=== PATIENT | female | born 1965 | race Caucasian/White ===

== ENCOUNTER → 2022-02-04 | Outpatient (CLI) | payer OTHER, SELFPAY ==
[2022-02-04 12:50] LABS: ALB/GLOB Ratio 1.3 RATIO (0.9-2.4); AST(SGOT) 26 U/L (15-37); Alanine Aminotransfer ALT/SGPT 27 U/L (13-56); Albumin, Serum 4.2 g/dL (3.2-5.0); Alkaline Phosphatase 49 U/L (45-117); Anion Gap 4 (5-15); BUN 12 mg/dL (7-18); BUN/Creat Ratio 19.4 RATIO (10-20); Chloride 107 mmol/L (98-107); Cholesterol 229 mg/dL (200); Creatinine, Serum 0.62 mg/dL (0.55-1.02); EST Glomerular Filtration Rate 105 mL/min (>60); Est Glom Filt Rate - Afr Amer 127 mL/min (>60); Globulin 3.2 g/dL (2.2-4.2); Glucose 98 mg/dL (74-106); High Density Lipoprotein 70 mg/dL; Potassium 4.9 mmol/L (3.5-5.1); Protein, Total 7.4 g/dL (6.4-8.2); Sodium Level 139 mmol/L (136-145); Triglycerides 118 mg/dL; Very Low Density Lipoprotein 24 mg/dL (5-40)
== END | disposition home or self-care (01) ==
LOC: BIMLAB 10:10
PROVIDERS: PCP Internal Medicine; Referring Provider Internal Medicine; Visit Provider Internal Medicine
DX: E78.2 Mixed hyperlipidemia (principal)
CPT/HCPCS: 36415; 80053; 80061

== ENCOUNTER → 2022-03-23 | Outpatient (CLI) | payer OTHER, SELFPAY ==
--- NOTE | 2022-03-23 08:07 | BI_ITS ---
MAMMOGRAPHY - BILATERAL SCREENING REASON FOR EXAM: Female, 56 years old. Routine annual screening examination. PERTINENT HISTORY: Non-contributory. TECHNIQUE: Digital bilateral breast kevin (3D mammographic acquisition) in the CC and MLO projections. 2-D mediolateral oblique (MLO) and craniocaudad (CC) views of both breasts were obtained. CAD: Full Field Digital Mammography with Computer Added Detection was performed. COMPARISON: Comparison is made with prior outside examination dated 11/05/2020. FINDINGS: Breast Composition: The breasts are extremely dense, which lowers the sensitivity of mammography. There are no dominant masses or suspicious calcifications. No other significant abnormalities are identified. There has been no significant change since the prior study. BI/SCRN MAMM (CAD)W/KEVIN BILAT IMPRESSION: Stable bilateral screening mammogram. Yearly follow-up mammogram recommended. (A) ASSESSMENT CATEGORY: BIRADS Category 1: Negative. A letter regarding these results will be sent to the patient by the facility within 30 days. Approximately 10% of breast cancers are not detected by mammography. A normal mammogram should not delay biopsy of a clinically suspicious abnormality. [id number] Electronically Signed: Ja Manzo MD at 8:42 EDT ,
== END | disposition home or self-care (01) ==
LOC: OPBI 08:05
PROVIDERS: PCP Internal Medicine; Visit Provider Internal Medicine
DX: Z12.31 Encounter for screening mammogram for malignant neoplasm of breast (principal)
CPT/HCPCS: 77063; 77067

== ENCOUNTER → 2023-02-09 | Outpatient (CLI) | payer OTHER, SELFPAY ==
[2023-02-09 12:20] LABS: Absolute Lymphocyte Count 2.18 X10^3/uL (0.83-4.51); Absolute Neutrophil Count 2.3 X10^3/uL (2.0-7.7); Basophil# 0.04 X10^3/uL; Basophil% 0.8 % (0-1); Eosinophil# 0.14 X10^3/uL; Eosinophils% 2.7 % (0-5); Hematocrit 39.4 % (37-47); Hemoglobin 12.8 g/dL (12.0-15.0); Lymphocyte # 2.18 X10^3/ul (0.83-4.51); Lymphocyte % 42.7 % (19-41); Mean Corp Hgb Conc 32.5 g/dL (32-36); Mean Corpuscular Hgb 31.4 pg (27.0-32.0); Mean Corpuscular Volume 96.6 fL (81-99); Mean Platelet Vol. 11.1 fl (6.2-12.0); Monocyte# 0.44 X10^3/uL; Monocyte% 8.6 % (0-10); NRBC Flagged by Analyzer 0 % (0-5); Neutrophil # 2.29 X10^3/uL (2.7-7.7); Platelet Count 229 K/mm3 (150-450); RBC Distribution Width CV 12.9 % (11.6-14.6); RBC Distribution Width SD 46.5 fl (35.1-43.9); Red Blood Count 4.08 M/mm3 (4.2-5.4); White Blood Count 5.1 K/mm3 (4.4-11.0)
[2023-02-09 12:55] LABS: ALB/GLOB Ratio 1.1 RATIO (0.9-2.4); AST(SGOT) 22 U/L (15-37); Alanine Aminotransfer ALT/SGPT 20 U/L (13-56); Albumin, Serum 3.9 g/dL (3.2-5.0); Alkaline Phosphatase 50 U/L (45-117); Anion Gap 2 (5-15); BUN 14 mg/dL (7-18); Calcium,Total 9.1 mg/dL (8.5-10.1); Chloride 108 mmol/L (98-107); Cholesterol 208 mg/dL (200); Creatinine, Serum 0.67 mg/dL (0.55-1.02); EST Glomerular Filtration Rate 96 mL/min (>60); Est Glom Filt Rate - Afr Amer 117 mL/min (>60); Globulin 3.6 g/dL (2.2-4.2); Glucose 92 mg/dL (74-106); High Density Lipoprotein 73 mg/dL; Potassium 4.6 mmol/L (3.5-5.1); Protein, Total 7.5 g/dL (6.4-8.2); Sodium Level 140 mmol/L (136-145); Triglycerides 105 mg/dL; Very Low Density Lipoprotein 21 mg/dL (5-40)
== END | disposition home or self-care (01) ==
PROVIDERS: PCP Internal Medicine; Visit Provider Internal Medicine
DX: E78.2 Mixed hyperlipidemia (principal)
CPT/HCPCS: 36415; 80053; 80061; 85025

== ENCOUNTER → 2023-05-13 | Outpatient (CLI) | payer OTHER, SELFPAY ==
--- NOTE | 2023-05-13 07:53 | BI_ITS ---
MAMMOGRAPHY - BILATERAL SCREENING REASON FOR EXAM: Female, 58 years old. Routine annual screening examination. PERTINENT HISTORY: Non-contributory. TECHNIQUE: Digital bilateral breast kevin (3D mammographic acquisition) in the CC and MLO projections. 2-D mediolateral oblique (MLO) and craniocaudad (CC) views of both breasts were obtained. CAD: Full Field Digital Mammography with Computer Added Detection was performed. COMPARISON: Comparison is made with prior study March 23, 2022. FINDINGS: Breast Composition: The breasts are extremely dense, which lowers the sensitivity of mammography. There are no dominant masses or suspicious calcifications. No other significant abnormalities are identified. There has been no significant change since the prior study. BI/SCRN MAMM (CAD)W/KEVIN BILAT IMPRESSION: Stable bilateral screening mammogram. Yearly follow-up mammogram recommended. (A) ASSESSMENT CATEGORY: BIRADS Category 1: Negative. A letter regarding these results will be sent to the patient by the facility within 30 days. Approximately 10% of breast cancers are not detected by mammography. A normal mammogram should not delay biopsy of a clinically suspicious abnormality. [id number] Electronically Signed: Ja Manzo MD at 14:39 EDT ,
== END | disposition home or self-care (01) ==
LOC: OPBI 07:51
PROVIDERS: PCP Internal Medicine; Referring Provider Internal Medicine; Visit Provider Internal Medicine
DX: Z12.31 Encounter for screening mammogram for malignant neoplasm of breast (principal)
CPT/HCPCS: 77063; 77067

== ENCOUNTER → 2024-02-08 | Outpatient (CLI) | payer OTHER, SELFPAY ==
[2024-02-08 12:17] LABS: Absolute Neutrophil Count 2.3 X10^3/uL (2.0-7.7); Basophil# 0.04 X10^3/uL; Eosinophil# 0.06 X10^3/uL; Eosinophils% 1.4 % (0-5); Hematocrit 38.7 % (37-47); Hemoglobin 12.9 g/dL (12.0-15.0); Lymphocyte % 35.6 % (19-41); Mean Corp Hgb Conc 33.3 g/dL (32-36); Mean Corpuscular Hgb 31.5 pg (27.0-32.0); Mean Corpuscular Volume 94.4 fL (81-99); Mean Platelet Vol. 10.6 fl (6.2-12.0); Monocyte# 0.34 X10^3/uL; Monocyte% 8.1 % (0-10); NRBC Flagged by Analyzer 0 % (0-5); Neutrophil # 2.26 X10^3/uL (2.7-7.7); Neutrophil % 53.7 % (47-70); Platelet Count 250 K/mm3 (150-450); RBC Distribution Width SD 45.1 fl (35.1-43.9); White Blood Count 4.2 K/mm3 (4.4-11.0)
[2024-02-08 12:23] LABS: ALB/GLOB Ratio 1.2 RATIO (0.9-2.4); AST(SGOT) 17 U/L (15-37); Alanine Aminotransfer ALT/SGPT 19 U/L (13-56); Albumin, Serum 4.1 g/dL (3.2-5.0); Alkaline Phosphatase 45 U/L (45-117); Anion Gap 5 (5-15); BUN 14 mg/dL (7-18); BUN/Creat Ratio 21.1 RATIO (10-20); Calcium,Total 9.3 mg/dL (8.5-10.1); Chloride 105 mmol/L (98-107); Cholesterol 205 mg/dL (200); Creatinine, Serum 0.66 mg/dL (0.55-1.02); EST Glomerular Filtration Rate 97 mL/min (>60); Est Glom Filt Rate - Afr Amer 117 mL/min (>60); Globulin 3.3 g/dL (2.2-4.2); Glucose 94 mg/dL (74-106); High Density Lipoprotein 70 mg/dL; Potassium 4.7 mmol/L (3.5-5.1); Protein, Total 7.4 g/dL (6.4-8.2); Sodium Level 137 mmol/L (136-145); Triglycerides 109 mg/dL; Very Low Density Lipoprotein 22 mg/dL (5-40)
[2024-02-08 13:23] LABS: Hemoglobin A1c 5.2 % (3.8-5.6)
== END | disposition home or self-care (01) ==
PROVIDERS: PCP Internal Medicine; Referring Provider Nurse Practitioner; Visit Provider Nurse Practitioner
DX: Z00.00 Encounter for general adult medical examination without abnormal findings (principal); E78.2 Mixed hyperlipidemia
CPT/HCPCS: 36415; 80053; 80061; 83036; 85025

== ENCOUNTER 2024-02-22 07:38 | Outpatient (RCR) | payer OTHER, SELFPAY ==
--- NOTE | 2024-02-22 09:10 | HP.PTDCSUM_ITS ---
Discharge Summary D/C summary: It has been my pleasure to treat ISAAC KHAN referred by [facility], with the diagnosis of Hip Pain for a total of 1 visit(s). Discharge Date: 02/22/24 Please see the following information for a summary of their discharge status. Plan Plan: Patient will continue with [facility] due to high deductible and will call if questions D/C Information Discharge Comments: Pt has high deductible and asked to be d/c to [facility] will call with questions or concerns d/c sentence: If there are questions or concerns regarding this patient's physical therapy, pl seth feel free to call me at [phone]. Thank you for the referral of this patient. Sincerely, SAJAN CordobaT
--- NOTE | 2024-02-22 09:10 | HP.PTEVAL_ITS ---
Patient's Visit Information Visit Information Visit Information: ISAAC KHAN is a 58 year old F referred to Physical Therapy by [facility] Tra[facility] with a diagnosis of Hip Pain. Date of Evaluation: 02/22/24 Physical Therapist: Carmen Castellano DPT Visit Plan Frequency: 1x/Week Duration: 1 Week Plan: Patient will continue with [facility] due to high deductible and will call if questions Subjective Subjective: She has always been very active- she has always had stiffness in her right hip- inactivity for long periods of time in the car like driving to [employer]- she would not be able to walk for awhile. About a year ago it got really bad- she was diagnosed with Bursitis- she was given exercises. She thinks they feel like it was worse. She was given Meloxicam- collagen and exercises and she now doesn't really have a lot of pain. She is really here to see what she can and can't do. She was painfree for about a month. So she started working out again and then she started to have a tug on her hip. She hikes, bikes and she is unsure exactly what is going on. So she stopped and so she came to PT to see what we think. The pain is in the buttock and wraps around the outside. The pain radiates down the outside of the leg to the knee- no groin pain. She has not had any x-rays taken of her hips. She does have some achy back issues. She did have issues one time bending forwards picking up her newspapers. She describes the pain as a dull and achy tugging pain. No N/T in the LE. No loss or change in bowel or bladder. Routine for working out: core training- planks- pushups- firehydrants (back and out to the side), bird dogs, Objective Objective: Posture: scoliotic curve- good posture throughout session in sitting Gait: no deviation noted SLS: mild hip drop noted ROM: WNL in all planes of the Lumbar spine- does report discomfort and pulling with bilateral rotation- Hip: WNL bilateral Strength: Core: fair Hip: Right: Flexion: 4/5, Extn: 4/5, Abd: 4/5, IR/ER: 4/5, Add:4+/5, Left: Flexion: 4+/5, Extn: 4+/5, Abd: 4/5, IR/ER: 10/28, Add:4+/5, Knee: 11/27 Ankle: 11/27 Flex: HS: no restriction, Quad: no restriction, Piriformis: Left: no restriction Right: moderate restriction Rehabilitation Potential Physical Therapy Diagnosis: Patient has significant scoliotic curve and has muscular imbalances on either side of the curve leading to increase discomfort with ADL's and recreational activities Rehabilitation Potential: Good Anticipated Interventions Text: Thank you for the opportunity to evaluate your patient. For Medicare and Medicare HMO plans, please review the plan of care and approve it. It will need to be FAXED BACK to us at [phone] for Medicare purposes. For Medicare only, by signing this I certify the plan of care. Please let me know if there are questions or concerns regarding this plan of care. Physician Signature: Date:
== END 2024-02-22 10:30 | disposition home or self-care (01) ==
LOC: PT 07:38
PROVIDERS: PCP Internal Medicine; Referring Provider Nurse Practitioner; Visit Provider Nurse Practitioner
DX: M25.551 Pain in right hip (principal)
CPT/HCPCS: 97162

== ENCOUNTER → 2024-05-15 | Outpatient (CLI) | payer OTHER, SELFPAY ==
--- NOTE | 2024-05-15 08:08 | BI_ITS ---
MAMMOGRAPHY - BILATERAL SCREENING REASON FOR EXAM: Female, 59 years old. Routine annual screening examination. PERTINENT HISTORY: Non-contributory. TECHNIQUE: Digital bilateral breast kevin (3D mammographic acquisition) in the CC and MLO projections. 2-D mediolateral oblique (MLO) and craniocaudad (CC) views of both breasts were obtained. CAD: Full Field Digital Mammography with Computer Added Detection was performed. COMPARISON: Comparison is made with prior study May 13, 2023 and March 23, 2022. FINDINGS: Breast Composition: The breasts are extremely dense, which lowers the sensitivity of mammography. I suspect well-defined nodular densities in the left breast in the background of dense fibroglandular tissue. Correlation with ultrasound is recommended. No other significant abnormalities are identified. BI/SCRN MAMM (CAD)W/KEVIN BILAT IMPRESSION: Findings suggest a well-defined nodular densities in the left breast within the dense fibroglandular tissue. Correlation with ultrasound is recommended. ASSESSMENT CATEGORY: BIRADS Category 0: Incomplete. Need additional imaging evaluation. A letter regarding these results will be sent to the patient by the facility within 30 days. Approximately 10% of breast cancers are not detected by mammography. A normal mammogram should not delay biopsy of a clinically suspicious abnormality. [id number] Electronically Signed: Ja Manzo MD at 11:11 EDT ,
== END | disposition home or self-care (01) ==
LOC: OPBI 08:06
PROVIDERS: PCP Internal Medicine; Referring Provider Nurse Practitioner; Visit Provider Nurse Practitioner
DX: Z12.31 Encounter for screening mammogram for malignant neoplasm of breast (principal)
CPT/HCPCS: 77063; 77067

== ENCOUNTER → 2024-05-17 | Outpatient (CLI) | payer OTHER, SELFPAY ==
--- NOTE | 2024-05-17 10:50 | US_ITS ---
STUDY: ULTRASOUND BREAST - LEFT REASON FOR EXAM: Female, 59 years old. Abnormal screening mammogram. TECHNIQUE: Axial and longitudinal images of the LEFT breast were performed with a high resolution ultrasound transducer. # OF IMAGES: 64 COMPARISON: Comparison is made with prior mammogram dated May 15, 2024. FINDINGS: LEFT Breast: The lateral aspect of the left breast was examined with ultrasound. There is dense fibroglandular tissue. No sonographic abnormality is seen. US/Breast Limited Unilateral IMPRESSION: Dense fibroglandular tissue. No sonographic abnormality is seen. ASSESSMENT CATEGORY: BIRADS Category 2: Benign. A letter regarding these results will be sent to the patient by the facility within 30 days. Electronically Signed: Ja Manzo MD at 14:22 EDT ,
== END | disposition home or self-care (01) ==
PROVIDERS: PCP Internal Medicine; Referring Provider Nurse Practitioner; Visit Provider Nurse Practitioner
DX: R92.8 Other abnormal and inconclusive findings on diagnostic imaging of breast (principal)
CPT/HCPCS: 76642

== ENCOUNTER → 2025-02-15 | Outpatient (CLI) | payer OTHER, SELFPAY ==
--- OUTSIDE RECORDS SUMMARY | 2025-02-15 08:58 | XMS RPT_ITS | CCD ---
Author Organization [facility] Care Team Providers Care Vending Machine Servicer Name Role Phone Dr. Nano Gibbs Attending Provider BERNIE ABERNATHY, NANO Fish Primary Care Physician [phone] MALINI THOMAS Attending Unavailable BERNIE ABERNATHY, NANO Fish Primary Care Unavailable Dr. Nano Gibbs Primary Care Provider Dr. Nano Gibbs Attending Provider Dr. Nano Gibbs Referring Provider Dr. Nano Gibbs MD Primary Care Provider [phone] Dr. Nano Gibbs MD Attending Provider Bernie ABERNATHY, Dr. Morel Referring Provider Mayra Lacey Referring Unavailable Mayra Lacey Attending Unavailable Nano Gibbs Primary Care Unavailable Sridevi Laceyily Referring Unavailable Mayra Lacey Attending Unavailable Nano Gibbs Primary Care Unavailable Sridevi Laceyily Referring Unavailable Mayra Lacey Attending Unavailable Nano Gibbs Primary Care Unavailable Nano Gibbs Primary Care Unavailable Nano Gibbs Referring Unavailable Nano Gibbs Attending Unavailable Allergies Allergy Classification Reported Allergen(s) Allergy Type Date of Onset Reaction(s) Facility (6 sources) Codeine; Translations: [codeine] Drug Allergy 02-04-2022 Nausea [facility] Comment on above: nausea (1 source) Codeine Drug Allergy 02-08-2025 [facility] Repository Medications Current Medications Medication Drug Class(es) Dates Sig (Normalized) Sig (Original) acetaminophen 500 mg / diphenhydrAMINE hydrochloride 25 mg oral tablet (1 source) Histamine-1 Receptor Antagonist Start: 06-12-2022 take 1 tablet by mouth once daily at bedtime Tylenol PM Extra Strength oral tablet Dose = 1 tab(s), Oral, qHS, 0 Refill(s) Start Date: 06/12/22 Status: Ordered Biotin (1 source) Start: 10-30-2020 biotin Oral, qDay, 0 Refill(s) Start Date: 10/30/20 Status: Ordered Collagen (1 source) Start: 06-12-2022 Collagen Powder Collagen Powder, 0 Refill(s), 57.2 Start Date: 06/12/22 Status: Ordered Collagen (Bovine) 100 % powder in packet (1 source) Start: 02-08-2024 Collagen (Bovine) 100 % powder in packet Active [facility] February 08, 2024 12:00am ibuprofen 200 mg oral tablet (1 source) Nonsteroidal Anti-inflammatory Drug Start: 03-25-2015 ibuprofen 200 mg oral tablet Dose : 400 mg = 2 tab(s), Oral, q4h, PRN for pain, 0 Refill(s) Start Date: 03/25/15 Status: Ordered meloxicam 7.5 mg oral tablet (7 sources) Nonsteroidal Anti-inflammatory Drug Start: 02-04-2023 End: 12-21-2024 take 1 tablet by mouth once daily Meloxicam 7.5 mg tablet Active 7.5 mg PO DAILY 90 0 December 21, 2024 12:03pm Multivitamin preparation (5 sources) Start: 02-04-2022 take 1 tablet by mouth once daily Multivitamin Active 1 TABLET PO DAILY February 04, 2022 12:00am Start: 10-30-2020 take 1 tablet by barbara th once daily Multivitamin Dose = 1 tab(s), Oral, Daily, 0 Refill(s) Start Date: 10/30/20 Status: Ordered Completed/Discontinued Medications Medication Drug Class(es) Dates Sig (Normalized) Sig (Original) Multivitamin tablet (1 source) Start: 02-04-2022 End: 02-08-2024 Multivitamin tablet Discontinued 1 {tbl} PO DAILY February 04, 2022 12:00am February 08, 2024 7:51am naproxen sodium 220 mg oral capsule (5 sources) Nonsteroidal Anti-inflammatory Drug Start: 02-04-2022 End: 02-08-2024 take 1 capsule by mouth once daily as needed for pain Naproxen Sodium (Aleve) 220 mg capsule Discontinued 220 mg PO DAILY as needed for pain February 04, 2022 12:00am February 08, 2024 7:49am Problems Active Problems Problem Classification Problem Date Documented Da te Episodic/Chronic Administrative/social admission (2 sources) Persons encountering health services in other specified circumstances; Translations: [Other reasons for seeking consultation] Episodic Disorders of lipid metabolism (10 sources) Mixed hyperlipidemia; Translations: [Mixed hyperlipidemia] Chronic Other non-traumatic joint disorders (6 sources) Hip pain; Translations: [Pain in right hip] 02-04-2022 Episodic Residual codes; unclassified (2 sources) Family history of malignant neoplasm of digestive organs; Translations: [Family history of malignant neoplasm of gastrointestinal tract] Episodic Past or Other Problems Problem Classification Problem Date Documented Da te Episodic/Chronic Other non-traumatic joint disorders (5 sources) Pain in right hip; Translations: [Pain in joint, pelvic region and thigh] Onset: 02-22-2024 Episodic Other screening for suspected conditions (not mental disorders or infectious disease) (7 sources) Encounter for screening for malignant neoplasm of colon; Translations: [Special screening for malignant neoplasms of colon] Onset: 06-08-2024 Episodic Results Test Name Value Interpretation Reference Range Facility Internal Medicine Office Vis brandon 02-07-2025 Internal Medicine Office Visit [facility] [address] [place] [address] OFFICE VISIT Date of Service: 02/08/25 MR#: [id number] Acct: [id number] Name: OLGA LIDIA KHAN Rep #: [id number] : 1965 Provider: Dr. Nano weiss MD Age/Sex: 59/F Location: [facility] Status: Signed Intake Vital Signs 02/08/24 07:52 02/08/25 07:59 02/08/25 09:53 Height 5 ft 3 in 5 ft 3 in Weight: 125 lb 2 oz BMI 22.1 BP 142/68 H 118/62 Blood Pressure Location Lt brachial Position Sitting Respiration 16 Pulse 64 Pulse Source Monitor Temp 97.4 F L Temp Source Temporal Pulse Oximetry (%) 98 Oxygen Delivery Method room air Intake Visit Reasons: YEARLY Chief Complaint: 1 YR FU Ui Software Developer Required: No Accompanied by: Self Is patient in pain?: No Allergies codeine Adverse Reaction (Mild, Verified 02/08/25 07:58) Nausea Medications ???Medication ???Instructions ???Recorded ???Confirmed ???Type collagen (bovine) 100 % topical ea topical 02/08/24 02/08/25 Histo ry powder in packet meloxicam 7.5 mg tablet 7.5 mg PO DAILY #90 tabs 02/08/25 02/08/25 Rx Nurse's Note: yearly [facility] Surgical History History of D C Family History Mother COPD (chronic obstructive pulmonary disease) Thyroid disorder Anxiety Arthritis Depression Colon cancer Rheumatoid arthritis Father Blood clot in vein Myocardial infarction Diabetes Heart disease Hypertension CVA (cerebral vascular accident) Social History household members: spouse current occupational status: retired current occupation: youth teacher Smoking Status: Never smoker Electronic Cigarette Use: not used alcohol intake: current alcohol intake frequency: holidays/special occasions only substance use type: does not use do you feel safe at home: Yes Questionnaire H-9 BMS Over the last 2 weeks, how often have you been bothered by any of the following problems? 1. Little interest or pleasure in doing things: not at all 2. Feeling down, depressed, or hopeless: not at all 3. Trouble falling or staying asleep, or sleeping too much: not at all 4. Feeling tired or having little energy: not at all 5. Poor appetite or overeating: not at all 6. Feeling bad about yourself - or that you are a failure or have let yourself and your family down: not at all 7. Trouble concentrating on things, such as reading the newspaper or watching television: not at all 8. Moving or speaking so slowly that other people could have noticed? - Or the opposite - being so fidgety or restless that you have been moving around a lot more than usual: not at all 9. Thoughts that you would be better off or of hurting yourself in some way: not at all Total score: 0 If you checked off any problems, how difficult have these problems made it for you to do your work, take care of things at home, or get along with other people?: not difficult at all Source: Developed by Drs. Cody Hong, Gail Greene, Nam Jimenez and colleagues, with an educational brayan from [employer]. HPI HPI Chief Complaint: 1 YR FU Details: OLGA LIDIA KHAN, is a 59 F who presents to the office today for an annual visit. She is due for some routine blood work and is up to date on her screening. She sees CARLI Agarwal. She never got her shingrix, but still plans on doing so. She isn't due for any other immunizations. She doesn't smoke and doesn't take any prescription medications. She reports her hip pain has been doing better. She reports she did do physical therapy and has since been doing more stretches and exercises. She tries to do pilates which has been helpful. Wh ile she still has some symptoms, it is doing better than it was. She will take meloxicam only as needed, which does help when her pain is pain. She has no other questions or concerns. Allergies: codeine Medications reviewed: Yes Olga Lidia likes to exercises by walking, hiking, biking and doing pilates as above. They watch their diet for sodium, low fat, and low cholesterol most of the time. List of current specialists seen: CARLI End of life planning discussed including patient's advanced directive wishes: Discussed. Patient does have one in place. I am willing to follow Olga Lidia's advanced directives PHQ-2/Depression screen They in the past two weeks denies having felt down, depressed, hopeless or with little interest or pleasure in doing things. Functional Ability/Safety Screen 1. Was the patient's time up and go test unsteady or longer than 30 seconds? No 2. Does the patient need help with the phone, transportation, shopping, prepared meals, housework, laundry, medications or ma (more content not included)... Normal [facility] Breast Limited Unilateralon 05-17-2024 Breast Limited Unilateral [facility] [address] [place] [address] Breast Limited Unilateral MR#: [id number] Acct: [id number] Name: OLGA LIDIA KHAN Rep #: [id number] : 1965 F 59 From: Ja fraga MD PCP: Dr. Nano Gibbs MD Status: REG CLI Study: Breast Limited Unilateral Date of Exam: Exam# [id number] Ordering Dr: Mayra Lacey -[id number] STUDY: ULTRASOUND BREAST - LEFT REASON FOR EXAM: Female, 59 years old. Abnormal screening mammogram. TECHNIQUE: Axial and longitudinal images of the LEFT breast were performed with a high resolution ultrasound transducer. # OF IMAGES: 64 COMPARISON: Comparison is made with prior mammogram dated May 15, 2024. FINDINGS: LEFT Breast: The lateral aspect of the left breast was examined with ultrasound. There is dense fibroglandular tissue. No sonographic abnormality is seen. US/Breast Limited Unilateral IMPRESSION: Dense fibroglandular tissue. No sonographic abnormality is seen. ASSESSMENT CATEGORY: BIRADS Category 2: Benign. A letter regarding these results will be sent to the patient by the facility within 30 days. Electronically Signed: Ja Manzo MD at 14:22 EDT , CC: EMMA Lacey; Dr. Nano Gibbs MD B2B Sales Professional: Signed Normal [facility] SCRN MAMM (CAD)W/KEVIN BILATo n 05-15-2024 SCRN MAMM (CAD)W/KEVIN BILAT [facility] Imaging Services [address] [place], [place] [address] SCRN MAMM (CAD)W/KEVIN BILAT MR#: [id number] Acct: [id number] Name: OLGA LIDIA KHAN Rep #: [id number] : 1965 F 59 From: Ja fraga MD PCP: Dr. Nano Gibbs MD Status: REG [facility] Study: SCRN MAMM (CAD)W/KEVIN BILAT Date of Exam: 04/26 08/18 Exam# [id number] Ordering Dr: Mayra Lacey OTHER SPORTS OFFICIAL-C -[id number] MAMMOGRAPHY - BILATERAL SCREENING REASON FOR EXAM: Female, 59 years old. Routine annual screening examination. PERTINENT HISTORY: Non-contributory. TECHNIQUE: Digital bilateral breast kevin (3D mammographic acquisition) in the CC and MLO projections. 2-D mediolateral oblique (MLO) and craniocaudad (CC) views of both breasts were obtained. CAD: Full Field Digital Mammography with Computer Added Detection was performed. COMPARISON: Comparison is made with prior study May 13, 2023 and March 23, 2022. FINDINGS: Breast Composition: The breasts are extremely dense, which lowers the sensitivity of mammography. I suspect well-defined nodular densities in the left breast in the background of dense fibroglandular tissue. Correlation with ultrasound is recommended. No other significant abnormalities are identified. BI/SCRN MAMM (CAD)W/KEVIN BILAT IMPRESSION: Findings suggest a well-defined nodular densities in the left breast within the dense fibroglandular tissue. Correlation with ultrasound is recommended. ASSESSMENT CATEGORY: BIRADS Category 0: Incomplete. Need additional imaging evaluation. A letter regarding these results will be sent to the patient by the facility within 30 days. Approximately 10% of breast cancers are not detected by mammography. A normal mammogram should not delay biopsy of a clinically suspicious abnormality. [id number] Electronically Signed: Ja Manzo MD at 11:11 EDT , CC: EMMA Lacey; Dr. Nano Gibbs MD B2B Sales Professional: Signed Normal [facility] Inital Evaluation (1) - PTon 02-22-2024 Inital Evaluation (1) - PT [facility] Physical Therapy [facility] [address] [place] [address] / REHABILITATION SERVICES INITIAL EVALUATION MR#: [id number] Acct: [id number] Name: OLGA LIDIA KHAN Rep #: [id number] : 1965 58 From: Carmen Castellano DPT Referring Dr.: EMMA Traore Status: REG R Insurance: [employer] [facility] Patient's Visit Information Visit Information Visit Information: OLGA LIDIA KHAN is a 58 year old F referred to Physical Therapy by EMMA Traore with a diagnosis of Hip Pain. Date of Evaluation: 02/22/24 Physical Therapist: Carmen Castellano DPT Visit Plan Frequency: 1x/Week Duration: 1 Week Plan: Patient will continue with HEP due to high deductible and will call if questions Subjective Subjective: She has always been very active- she has always had stiffness in her right hip- inactivity for long periods of time in the car like driving to [place]- she would not be able to walk for awhile. About a year ago it got really bad- she was diagnosed with Bursitis- she was given exercises. She thinks they feel like it was worse. She was given Meloxicam- collagen and exercises and she now doesn't really have a lot of pain. She is really here to see what she can and can't do. She was painfree for about a month. So she started working out again and then she started to have a tug on her hip. She hikes, bikes and she is unsure exactly what is going on. So she stopped and so she came to PT to see what we think. The pain is in the buttock and wraps around the outside. The pain radiates down the outside of the leg to the knee- no groin pain. She has not had any x- rays taken of her hips. She does have some achy back issues. She did have issues one time bending forwards picking up her newspapers. She describes the pain as a dull and achy tugging pain. No N/T in the LE. No loss or change in bowel or bladder. Routine for working out: core training- planks- pushups- firehydrants (back and out to the side), bird dogs, Objective Objective: Posture: scoliotic curve- good posture throughout session in sitting Gait: no deviation noted SLS: mild hip drop noted ROM: WNL in all planes of the Lumbar spine- does report discomfort and pulling with bilateral rotation- Hip: WNL bilateral Strength: Core: fair Hip: Right: Flexion: 4/5, Extn: 4/5, Abd: 4/5, IR/ER: 4/5, Add:4+/5, Left: Flexion: 4+/5, Extn: 4+/5, Abd: 4/5, IR/ER: 4/5, Add:4+/5, Knee: 5/5 Ankle: 5/5 Flex: HS: no restriction, Quad: no restriction, Piriformis: Left: no restriction Right: moderate restriction Rehabilitation Potential Physical Therapy Diagnosis: Patient has significant scoliotic curve and has muscular imbalances on either side of the curve leading to increase discomfort with ADL's and recreational activities Rehabilitation Potential: Good Anticipated Interventions Text: Thank you for the opportunity to evaluate your patient. For Medicare and Medicare HMO plans, please review the plan of care and approve it. It will need to be FAXED BACK to us at [phone] for Medicare purposes. For Medicare only, by signing this I certify the plan of care. Please let me know if there are questions or concerns regarding this plan of care. Physician Signature: __Date: 02/22/24 0910 CC: EMMA Lacey; Dr. Nano Gibbs MD ELR Signed Normal [facility] PT D/C Summary (1)on 024 PT D/C Summary (1) [facility] Physical Therapy [facility] [facility] [address] [place] [address] / REHABILITATION SERVICES DISCHARGE SUMMARY MR#: [id number] Acct: [id number] Name: OLGA LIDIA KHAN Rep #: [id number] : 1965 58 From: Carmen Castellano DPT Referring Dr.: EMMA Lacey Status: REG RCR Insurance: [employer] [facility] [employer] Discharge Summary D/C summary: It has been my pleasure to treat OLGA LIDIA KHAN referred by EMMA Traore, with the diagnosis of Hip Pain for a total of 1 visit(s). Discharge Date: 02/22/24 Please see the following information for a summary of their discharge status. Plan Plan: Patient will continue with HEP due to high deductible and will call if questions D/C Information Discharge Comments: Pt has high deductible and asked to be d/c to HEP will call with questions or concerns d/c sentence: If there are questions or concerns regarding this patient's physical therapy, please feel free to call me at [phone]. Thank you for the referral of this patient. Sincerely, Carmen Castellano DPT 02/22/24 0910 CC: EMMA Lacey; Dr. Nano Gibbs MD ELR Signed Normal [facility] Absolute lymphocyte countOrd ered By: Nano Gibbs on 02-09-2023 Lymphocytes Auto (Unsp spec) [#/Vol] 2.18 10*3/uL 0.83-4.51 [facility] Basophil percentageOrdered B y: Nano Gibbs on 02-09-2023 Basophils/100 WBC (Bld) 0.8 % 0-1 [facility] Bilirubin [Mass/Vol] 0.60 mg/dL 0.20-1.00 [facility] Comment on above: For patients on eltr ombopag therapy, use of Dimension [place] TBIL is not recommended. Chloride [Moles/Vol] 108 mmol/L 98-107 [facility] Cholesterol [Mass/Vol] 208 mg/dL <[address] [facility] Comment on above: <200 mg/dL Desirable 200-240 mg/dL Borderline >240 mg/dL High Risk Eosinophils/100 WBC (Bld) 2.7 % 0-5 [facility] Glucose [Mass/Vol] 92 mg/dL 74-106 [facility] Neutrophils (Bld) [#/Vol] 2.3 10*3/uL 2.0-7.7 [facility] Neutrophils/100 WBC (Bld) 45.0 % 47-70 [facility] Potassium [Moles/Vol] 4.6 mmol/L 3.5-5.1 [facility] Protein [Mass/Vol] 7.5 g/dL 6.4-8.2 [facility] Sodium [Moles/Vol] 140 mmol/L 136-145 [facility] Triglyceride [Mass/Vol] 105 mg/dL <199 [facility] Comment on above: The drugs N-Acetylcy steine and Metamizole may falsely depress this assay.Serum Triglycerides Reference Interval Normal <150 mg/dL Borderline high 150 - 199 mg/dL High 200 - 499 mg/dL Very High > or = 500 mg/dL WBC (Bld) [#/Vol] 5.1 10*3/uL 4.4-11.0 [facility] Blood erythrocytes count (nu mber/volume)Ordered By: Nano Gibbs on 02-09-2023 RBC (Bld) [#/Vol] 4.08 10*6/uL 4.2-5.4 [facility] Blood hemoglobin measurement (mass/volume)Ordered By: Nano Gibbs on 02-09-2023 Hemoglobin (Bld) [Mass/Vol] 12.8 g/dL 12.0-15.0 [facility] Blood lymphocytes/100 leukoc ytesOrdered By: Nano Gibbs on 02-09-2023 Lymphocytes/100 WBC (Bld) 42.7 % 19-41 [facility] Blood monocytes/100 leukocyt esOrdered By: Nano Gibbs on 02-09-2023 Monocytes/100 WBC (Bld) 8.6 % 0-10 [facility] Blood platelet mean volumeOr dered By: Nano Gibbs on 02-09-2023 Platelet mean volume (Bld) [Entitic vol] 11.1 fL 6.2-12.0 [facility] Determination of erythrocyte mean corpuscular volume (MCV)Ordered By: Nano Gibbs on 02-09-2023 MCV (RBC) [Entitic vol] 96.6 fL 81-99 [facility] Hematocrit Auto (Bld) [Volum e fraction]Ordered By: Nano Gibbs on 02-09-2023 Hematocrit (Bld) [Volume fraction] 39.4 % 37-47 [facility] Laboratory - Chemistry and C hemistry - challengeOrdered By: Nano Gibbs on 02-09-2023 ALP [Catalytic activity/Vol] 50 U/L 45-117 [facility] ALT [Catalytic activity/Vol] 20 U/L 13-56 [facility] CO2 [Moles/Vol] 30.0 mmol/L 21.0-32.0 [facility] Globulin (S) [Mass/Vol] 3.6 g/dL 2.2-4.2 [facility] Urea nitrogen/Creatinine [Mass ratio] 21.0 mg/mg 10-20 [facility] Laboratory - Hematology and Cell countsOrdered By: Nano Gibbs on 02-09-2023 Erythrocyte distribution width (RBC) [Entitic vol] 46.5 fL 35.1-43.9 [facility] Erythrocyte distribution width (RBC) [Ratio] 12.9 % 11.6-14.6 [facility] Immature granulocytes/100 WBC (Bld) 0.200 % 0.0-0.9 [facility] Comment on above: IG% - Immature Granu locytes (promyelocytes, myelocytes and metamyelocytes) > 1% indicates that a LEFT SHIFT is Present. MCH (RBC) [Entitic mass] 31.4 pg 27.0-32.0 [facility] Nucleated RBC/100 WBC (Bld) [Ratio] 0 % 0-5 [facility] MCHC Auto (RBC) [Mass/Vol]Or dered By: Nano Gibbs on 02-09-2023 MCHC (RBC) [Mass/Vol] 32.5 g/dL 32-36 [facility] No Panel InformationOrdered By: Nano Gibbs on 02-09-2023 Estimated GFR (MDRD) Amer 117 mL/min >60 [facility] Comment on above: GFR Calc Estimated GFR (MDRD) Non-Af Amer 96 mL/min >60 [facility] Comment on above: Non- GFR Calc Platelets bldOrdered By: Vince Gibbs on 02-09-2023 Platelets (Bld) [#/Vol] 229 10*3/uL 150-450 [facility] Serum or plasma albumin franko urement (mass/volume)Ordered By: Nano Gibbs on 02-09-2023 Albumin [Mass/Vol] 3.9 g/dL 3.2-5.0 [facility] Serum or plasma albumin/glob ulin mass ratioOrdered By: Nano Gibbs on 02-09-2023 Albumin/Globulin [Mass ratio] 1.1 {ratio} 0.9-2.4 [facility] Serum or plasma calcium franko urement (mass/volume)Ordered By: Nano Gibbs on 02-09-2023 Calcium [Mass/Vol] 9.1 mg/dL 8.5-10.1 [facility] Serum or plasma cholesterol in HDL measurement (mass/volume)Ordered By: Nano Gibbs on 02-09-2023 Cholesterol in HDL [Mass/Vol] 73 mg/dL >40 [facility] Comment on above: The drugs N-Acetylcy steine and Metamizole may falsely depress this assay. Reference Range HDL <40 mg/dL Low HDL Cholesterol HDL >or= 60 mg/dL High HDL Cholesterol Serum or plasma cholesterol in VLDL measurement (mass/volume)Ordered By: Nano Gibbs on 02-09-2023 Cholesterol in VLDL [Mass/Vol] 21 mg/dL 5-40 [facility] Serum or plasma creatinine m easurement (mass/volume)Ordered By: Nano Gibbs on 02-09-2023 Creatinine [Mass/Vol] 0.67 mg/dL 0.55-1.02 [facility] Comment on above: The validity of the calculated GFR & GFRAA in patients over 70 years has not been determined. Clinical correlation is essential. Serum or plasma low density lipoprotein (LDL) cholesterol measurement (mass/volume)Ordered By: Nano Gibbs on 02-09-2023 Cholesterol in LDL [Mass/Vol] 114 mg/dL 0-130 [facility] Serum or plasma urea nitroge n measurement (mass/volume)Ordered By: aNno Gibbs on 02-09-2023 Urea nitrogen [Mass/Vol] 14 mg/dL 7-18 [facility] Thin prep Papanicolaou smear with manual screeningOrdered By: Nanofrida Gibbs on 02-09-2023 Thin prep Papanicolaou smear with manual screening 22 U/L 15-37 [facility] Thin prep Papanicolaou smear with manual screening 2 5-15 [facility] Basophil percentageon 2021 Bilirubin [Mass/Vol] 0.40 mg/dL 0.20-1.00 [facility] Work Phone: Comment on above: For patients on eltr ombopag therapy, use of Dimension [place] TBIL is not recommended. Chloride [Moles/Vol] 107 mmol/L 98-107 [facility] Work Phone: Cholesterol [Mass/Vol] 229 mg/dL <200 [facility] Work Phone: Comment on above: <200 mg/dL Desirable 200-240 mg/dL Borderline >240 mg/dL High Risk Glucose [Mass/Vol] 98 mg/dL 74-106 [facility] Work Phone: Potassium [Moles/Vol] 4.9 mmol/L 3.5-5.1 [facility] Work Phone: Protein [Mass/Vol] 7.4 g/dL 6.4-8.2 [facility] Work Phone: Sodium [Moles/Vol] 139 mmol/L 136-145 [facility] Work Phone: Triglyceride [Mass/Vol] 118 mg/dL <199 [facility] Work Phone: Comment on above: [facility] drugs N-Acetylcy steine and Metamizole may falsely depress this assay.Serum Triglycerides Reference Interval Normal <150 mg/dL Borderline high 150 - 199 mg/dL High 200 - 499 mg/dL Very High > or = 500 mg/dL Laboratory - Chemistry and C hemistry - challengeon 02-04-2022 ALP [Catalytic activity/Vol] 49 U/L 45-117 [facility] Work Phone: ALT [Catalytic activity/Vol] 27 U/L 13-56 [facility] Work Phone: CO2 [Moles/Vol] 28.0 mmol/L 21.0-32.0 [facility] Work Phone: Globulin (S) [Mass/Vol] 3.2 g/dL 2.2-4.2 [facility] Work Phone: Urea nitrogen/Creatinine [Mass ratio] 19.4 mg/mg 10-20 [facility] Work Phone: No Panel Informationon 02-04 Estimated GFR (MDRD) Amer 127 mL/min >60 [facility] Work Phone: Comment on above: GFR Calc Estimated GFR (MDRD) Non-Af Amer 105 mL/min >60 [facility] Work Phone: Comment on above: Non- GFR Calc Serum or plasma albumin franko urement (mass/volume)on 02-04-2022 Albumin [Mass/Vol] 4.2 g/dL 3.2-5.0 [facility] Work Phone: Serum or plasma albumin/glob ulin mass ratioon 02-04-2022 Albumin/Globulin [Mass ratio] 1.3 {ratio} 0.9-2.4 [facility] Work Phone: Serum or plasma calcium franko urement (mass/volume)on 02-04-2022 Calcium [Mass/Vol] 9.0 mg/dL 8.5-10.1 [facility] Work Phone: Serum or plasma cholesterol in HDL measurement (mass/volume)on 02-04-2022 Cholesterol in HDL [Mass/Vol] 70 mg/dL >40 [facility] Work Phone: Comment on above: The drugs N-Acetylcy steine and Metamizole may falsely depress this assay. Reference Range HDL <40 mg/dL Low HDL Cholesterol HDL >or= 60 mg/dL High HDL Cholesterol Serum or plasma cholesterol in VLDL measurement (mass/volume)on 02-04-2022 Cholesterol in VLDL [Mass/Vol] 24 mg/dL 5-40 [facility] Work Phone: Serum or plasma creatinine m easurement (mass/volume)on 02-04-2022 Creatinine [Mass/Vol] 0.62 mg/dL 0.55-1.02 [facility] Work Phone: Comment on above: The validity of the calculated GFR & GFRAA in patients over 70 years has not been determined. Clinical correlation is essential. Serum or plasma low density lipoprotein (LDL) cholesterol measurement (mass/volume)on 02-04-2022 Cholesterol in LDL [Mass/Vol] 135 mg/dL 0-130 [facility] Work Phone: Serum or plasma urea nitroge n measurement (mass/volume)on 02-04-2022 Urea nitrogen [Mass/Vol] 12 mg/dL 7-18 [facility] Work Phone: Thin prep Papanicolaou smear with manual screeningon 02-04-2022 Thin prep Papanicolaou smear with manual screening 26 U/L 15-37 [facility] Work Phone: Thin prep Papanicolaou smear with manual screening 4 5-15 [facility] Work Phone: Vital Signs Date Time Vital Sign Value Performing Clinician Facility 02-08-2025 07:59-0400 Body height 160.[address] Nano Gibbs MD Work Phone: [facility] 02-08-2025 07:59-0400 Body mass index (BMI) [Ratio] 22.1 kg/m2 Dr. Nano Gibbs MD Work Phone: [facility] 02-08-2025 07:59-0400 Body temperature 97.4 [degF] Dr. Nano Gibbs MD Work Phone: [facility] 02-08-2025 07:59-0400 Body weight 56.[address] Nano Gibbs MD Work Phone: [facility] 02-08-2025 07:59-0400 Diastolic blood pressure 68 mm[Hg] Dr. Nano Gibbs MD Work Phone: [facility] 02-08-2025 07:59-0400 Heart rate 64 /min Dr. Nano Gibbs MD Work Phone: [facility] 02-08-2025 07:59-0400 Respiratory rate 16 /min Dr. Nano Gibbs MD Work Phone: [facility] 02-08-2025 07:59-0400 SaO2% (BldA) [Mass fraction] 98 % Dr. Nano Gibbs MD Work Phone: [facility] 02-08-2025 07:59-0400 Systolic blood pressure 142 mm[Hg] Dr. Nano Gibbs MD Work Phone: [facility] 02-04-2023 09:01-0400 Body height 160.[address] Nano Gibbs Work Phone: [facility] 02-04-2023 09:01-0400 Body mass index (BMI) [Ratio] 22.3 kg/m2 Dr. Nano Gibbs Work Phone: [facility] 02-04-2023 09:01-0400 Body temperature 98.1 [degF] Dr. Nano Gibbs Work Phone: [facility] 02-04-2023 09:01-0400 Body weight 57.[address] Nano Gibbs Work Phone: [facility] 02-04-2023 09:01-0400 Diastolic blood pressure 82 mm[Hg] Dr. Nano Gibbs Work Phone: [facility] 02-04-2023 09:01-0400 Heart rate 69 /min Dr. Nano Gibbs Work Phone: [facility] 02-04-2023 09:01-0400 Respiratory rate 16 /min Dr. Nano Gibbs Work Phone: [facility] 02-04-2023 09:01-0400 SaO2% (BldA) [Mass fraction] 99 % Dr. Nano Gibbs Work Phone: [facility] 02-04-2023 09:01-0400 Systolic blood pressure 118 mm[Hg] Dr. Nano Gibbs Work Phone: [facility] 09-21-2022 10:05-0500 Diastolic Blood Pressure Non-Invasive [address] MALINI THOMAS MD [facility] [place] 09-21-2022 10:05-0500 Heart rate 78 /min DR MALINI THOMAS MD [facility] [place] 09-21-2022 10:05-0500 Respiratory rate 14 /min DR MALINI THOMAS MD [facility] [place] 09-21-2022 10:05-0500 Systolic Blood Pressure Non-Invasive [address] MALINI THOMAS MD [facility] [place] 09-21-2022 10:00-0500 Diastolic Blood Pressure Non-Invasive [address] MALINI THOMAS MD [facility] [place] 09-21-2022 10:00-0500 Heart rate 70 /min DR MALINI THOMAS MD [facility] [place] 09-21-2022 10:00-0500 Systolic Blood Pressure Non-Invasive [address] MALINI THOMAS MD [facility] [place] 09-21-2022 09:55-0500 Diastolic Blood Pressure Non-Invasive [address] MALINI THOMAS MD [facility] [place] 09-21-2022 09:55-0500 Heart rate 77 /min DR MALINI THOMAS MD [facility] [place] 09-21-2022 09:55-0500 Respiratory rate 19 /min DR MALINI THOMAS MD [facility] [place] 09-21-2022 09:55-0500 Systolic Blood Pressure Non-Invasive [address] MALINI THOMAS MD [facility] [place] 09-21-2022 09:45-0500 Respiratory Rate - Anes 27 br/min DR MALINI THOMAS MD [facility] [place] 09-21-2022 09:40-0500 Respiratory Rate - Anes 13 br/min DR MALINI THOMAS MD [facility] [place] 09-21-2022 09:35-0500 Respiratory Rate - Anes 17 br/min DR MALINI THOMAS MD [facility] [place] 09-21-2022 07:45-0500 Body height [address] MALINI THOMAS MD [facility] [place] 09-21-2022 07:45-0500 Body weight 56.[address] MALINI THOMAS MD [facility] [place] 09-21-2022 07:45-0500 Body weight 21.53 kg/m2 DR MALINI THOMAS MD [facility] [place] 09-21-2022 07:41-0500 Body temperature 96.98 [degF] DR MALINI THOMAS MD [facility] [place] 09-21-2022 07:41-0500 Heart rate 76 /min DR MALINI THOMAS MD [facility] [place] 02-04-2022 09:20-0400 Body height 160.[address] Nano Gibbs Work Phone: [facility] Work Phone: 02-04-2022 09:20-0400 Body mass index (BMI) [Ratio] 22.4 kg/m2 Dr. Nano Gibbs Work Phone: [facility] Work Phone: 02-04-2022 09:20-0400 Body temperature 98.3 [degF] Dr. Nano Gibbs Work Phone: [facility] Work Phone: 02-04-2022 09:20-0400 Body weight 57.[address] Nano Gibbs Work Phone: [facility] Work Phone: 02-04-2022 09:20-0400 Diastolic blood pressure 82 mm[Hg] Dr. Nano Gibbs Work Phone: [facility] Work Phone: 02-04-2022 09:20-0400 Heart rate 80 /min Dr. Nano Gibbs Work Phone: [facility] Work Phone: 02-04-2022 09:20-0400 Respiratory rate 18 /min Dr. Nano Gibbs Work Phone: [facility] Work Phone: 02-04-2022 09:20-0400 SaO2% (BldA) [Mass fraction] 98 % Dr. Nano Gibbs Work Phone: [facility] Work Phone: 02-04-2022 09:20-0400 Systolic blood pressure 122 mm[Hg] Dr. Nano Gibbs Work Phone: [facility] Work Phone: Encounters Encounter Date Encounter Type Care Provider Facility Start: 02-08-2025 End: 02-08-[address] Nano Gibbs MD Work Phone: [facility] Start: 02-08-2025 End: 02-08-[address] Nano Gibbs MD [facility] Work Phone: Start: 05-17-2024 End: 05-17-2024 ambulatory [facility] Facility:[facility] Start: 05-15-2024 End: 05-15-2024 ambulatory [facility] Facility:[facility] Start: 02-22-2024 End: 02-22-2024 ambulatory [facility] Facility:[facility] Start: 02-08-[address] Natalie Gibbs MD Work Phone: [facility] Start: 02-08-[address] Marian Gibbs MD Work Phone: [facility] Start: 05-13-2023 End: 05-13-[address] Nano Gibbs Work Phone: [facility] Work Phone: Start: 05-13-2023 End: 05-13-[address] Nano Gibbs Work Phone: [facility] Work Phone: Start: 02-09-2023 End: 02-09-[address] Nano Gibbs Work Phone: [facility] Work Phone: Start: 02-09-2023 End: 02-09-[address] [facility] [place] Start: 02-04-2023 End: 02-04-[address] Nano Gibbs Work Phone: [facility] Work Phone: Start: 09-21-2022 End: 09-21-2022 ambulatory MALINI THOMAS Facility:[facility] Start: 09-21-2022 End: 09-21-[address] MALINI THOMAS MD [facility] [place] Start: 03-23-2022 End: 03-23-[address] Nano Gibbs Work Phone: [facility] Work Phone: Start: 03-23-2022 End: 03-23-[address] Nano Gibbs Work Phone: [facility] Start: 02-04-2022 End: 02-04-[address] Nano Gibbs Work Phone: [facility] [place] Start: 02-04-2022 End: 02-04-[address] Nano Gibbs Work Phone: [facility] Procedures Date Procedure Procedure Detail Performing Clinician Start: 05-13-2023 Screening mammography Noelle Gibbs Work Phone: Start: 03-23-2022 Screening mammography Noelle Gibbs Work Phone: Start: 03-25-[address] MALINI THOMAS MD Structure of maxilla ry right third molar tooth (body structure) DR MALINI THOMAS MD Comment on above: romoval x 3-4 Plan of Treatment Date Care Activity Detail Author Start: 02-04-2022 Patient referral [facility] Work Phone: MG Breast - bilateral Screening [facility] Work Phone: Patient referral [facility] Work Phone: Immunizations Immunization Date Immunization Notes Care Provider Fa [facility] 07-08-2021 Covid (Moderna) Dr. Nano hollingsworth Work Phone: [facility] 03-11-2021 tetanus toxoid, redu jean-pierre diphtheria toxoid, and acellular pertussis vaccine, adsorbed; Translations: [Boostrix (Tdap)] Dr. Nano Gibbs Work Phone: [facility] 12-13-2020 Covid (Moderna) Dr. Nano hollingsworth Work Phone: [facility] 11-15-2020 Covid (Moderna) Dr. Nano hollingsworth Work Phone: [facility] 06-12-2015 influenza, injectabl e, quadrivalent, preservative free Dr. Nano Gibbs Work Phone: [facility] 06-12-2015 influenza, seasonal, injectable Dr. Nano Gibbs Work Phone: [facility] 06-12-2015 Seasonal, quadrivale nt, recombinant, injectable influenza vaccine, preservative free Dr. Nano Gibbs MD Work Phone: [facility] Payers Date Payer Category Payer Self-pay 2024 Unknown [id number] 2022 Unknown [id number] 1965 Unknown [id number] [id number] Unknown [id number] Unknown [id number] [id number] Unknown [id number] [id number] [id number] Unknown [id number] [id number] [id number] Unknown [id number] [id number] [id number] Social History Date Type Detail Facility Start: 02-04-2022 End: 02-04-2023 Tobacco smoking status KSIS Unknown if ever smoked [facility] Start: 1965 Sex Assigned At Female A [facility] Start: 05-26-2019 End: 02-07-2025 Tobacco smoking status Never smoked tobacco (finding) [facility] Functional Status Date Assessment Result Facility 09-21-2022 Functional Status Awake, Dangle, Up ad louise [facility] [place] 09-21-2022 Functional Status Maintained, More than 8 hours [facility] [place] Mental Status Date Assessment Result Facility 09-21-2022 Mental Status Orientation Oriented x 4 [facility] 09-21-2022 Mental Status [facility] Clinical Notes 09-21-2022 Note Date & Type Note Facility 09-21-2022 Evaluation + Plan note Extrac sharath from: Title:Clinical Document Author:MALINI THOMAS Date:09/21/22 METALINE ADMISSION HISTORY AN D PHYSICIAL CHIEF COMPLAINT: HISTORY OF PRESENT ILLNESS: REVIEW OF SYSTEMS: ACTIVE PROBLEMS: (1) Hypercholesterolemia ([id number]) MEDICATIONS: Active Inpt Meds: None Active PRN Meds: None One Time Meds: None Active IV Meds: Lactated Ringers Infusion 1,000 mL (LR 1,000 mL) Start: 09/21/22 7:39:00 EST, Rate: 50 mL/hr, 09/21/22 7:39:00 EST ALLERGIES: (1) codeine FAMILY HISTORY: SOCIAL HISTORY: PHYSICAL EXAM: VITALS: [id number](kg) 09/21 07:4136.1--[id number] 56.5 24 Hr Tmax: 36.1 at 09/21 07:41 36 Hr Tmax: 36.1 at 09/21 07:41 Vital Signs are the last 5 in the past 48 hours. Weights display the last 5 within 7 days. Initial Wt: 09/21 56.5 kg 124 lb Current Wt: 09/21 56.5 kg 124 lb GENERAL: HEENT: CARDIOVASCULAR: RESPIRATORY: ABDOMEN: EXREMETIES: NEUROLOGICAL: PSYCHIATRIC: LABS: No 36hr Lab Data DIAGNOSTICS: IMPRESSION: PLAN: History and Physical Update I have examined the patient; reviewed the H&P and there are no changes to the H&P unless noted below. [facility] [place] 02-27-2023 Hospital Discharge instructions Patient Education 09/21/2022 09:52:00 Colonoscopy, Adult, Care After Colonoscopy, Adult, Care After This sheet gives you information about how to care for yourself after your procedure. Your health care provider may also give you more specific instructions. If you have problems or questions, contact your health care provider. What can I expect after the procedure? After the procedure, it is common to have: A small amount of blood in your stool for 24 hours after the procedure. Some gas. Mild abdominal cramping or bloating. Follow these instructions at home: General instructions For the first 24 hours after the procedure: ?Do not drive or use machinery. ?Do not sign important documents. ?Do not drink alcohol. ?Do your regular daily activities at a slower pace than normal. ?Eat soft, nccu-yp-jmhbds foods. Take gpkj-vpn-tnumflk or prescription medicines only as told by your health care provider. Relieving cramping and bloating Try walking around when you have cramps or feel bloated. Apply heat to your abdomen as told by your health care provider. Use a heat source that your healthcare provider recommends, such as a moist heat pack or a heating pad. ?Place a towel between your skin and the heat source. ?Leave the heat on for 20 30 minutes. ?Remove the heat if your skin turns bright red. This is especially important if you are unable to feel pain, heat, or cold. You may have a greater risk of getting burned. Eating and drinking Drink enough fluid to keep your urine pale yellow. Resume your normal diet as instructed by your health care provider. Avoid heavy or fried foods thatare hard to digest. Avoid drinking alcohol for as long as instructed by your health care provider. Contact a health care provider if: You have blood in your stool 2 3 days after the procedure. Get help right away if: You have more than a small spotting of blood in your stool. You pass large blood clots in your stool. Your abdomen is swollen. You have nausea or vomiting. You have a fever. You have increasing abdominal pain that is not relieved with medicine. Summary After the procedure, it is common to have a small amount of blood in your stool. You may also have mild abdominal cramping and bloating. For the first 24 hours after the procedure, do not drive or use machinery, sign important documents, or drink alcohol. Contact your health care provider if you have a lot of blood in your stool, nausea or vomiting, a fever, or increased abdominal pain. This information is not intended to replace advice given to you by your health care provider. Make sure you discuss any questions you have with your health care provider. Document Released: 02/23/2005 Document Revised: 05/04/2018 Document Reviewed: 09/22/2016 [employer] Patient Education 2020 [employer] 09/21/2022 09:51:54 Monitored Anesthesia Care, Care After Monitored Anesthesia Care, Care After These instructions provide you with information about caring for yourself after your procedure. Your health care provider may also give you more specific instructions. Your treatment has been plannedaccording to current medical practices, but problems sometimes occur. Call your health care provider if you have any problems or questions after your procedure. What can I expect after the procedure? After your procedure, you may: Feel sleepy for several hours. Feel clumsy and have poor balance for several hours. Feel forgetful about what happened after the procedure. Have poor judgment for several hours. Feel nauseous or vomit. Have a sore throat if you had a breathing tube during the procedure. Follow these instructions at home: For at least 24 hours after the procedure: Have a responsible adult stay with you. It is important to have someone help care for you until youare awake and alert. Rest as needed. Do not: ?Participate in activities in which you could fall or become injured. ?Drive. ?Use heavy machinery. ?Drink alcohol. ?Take sleeping pills or medicines that cause drowsiness. ?Make important decisions or sign legal documents. ?Take care of children on your own. Eating and drinking Follow the diet that is recommended by your health care provider. If you vomit, drink water, juice, or soup when you can drink without vomiting. Make sure you have little or no nausea before eating solid foods. General instructions Take jcxt-zmb-hbxqtbd and prescription medicines only as told by your health care provider. If you have sleep apnea, surgery and certain medicines can increase your risk for breathing problems. Follow instructions from your health care provider about wearing your sleep device: ?Anytime you are sleeping, including during daytime naps. ?While taking prescription pain medicines, sleeping medicines, or medicines that make you drowsy. If you smoke, do not smoke without supervision. Keep all follow-up visits as told by your health care provider. This is important. Contact a health care provider if: You keep feeling nauseous or you keep vomiting. You feel light-headed. You develop a rash. You have a fever. Get help right away if: You have trouble breathing. Summary For several hours after your procedure, you may feel sleepy and have poor judgment. Have a responsible adult stay with you for at least 24 hours or until you are awake and alert. This information is not intended to replace advice given to you by your health care provider. Make sure you discuss any questions you have with your health care provider. Document Released: 11/01/2016 Document Revised: 10/10/2018 Document Reviewed: 11/01/2016 [employer] Patient Education 2020 [employer] Follow Up Care 09/14/2022 12:48:11 With:MALINI THOMAS Address: [address] [address] [phone] Business (1) When: Unknown Comments:FOLLOW UP NEEDED. NEXT COLONOSCOPY: YEARS. [facility] [place] 02-27-2023 Summary of episode note Discharge Instructions Thank you for allowing [facility] to assist you with your healthcare needs. The following is importantdischarge information regarding your hospital visit. Your Care Team NANO GIBBS MD What to do next Follow Up Appointments Follow Up with MALINI THOMAS When Why: FOLLOW UP NEEDED. NEXT COLONOSCOPY: YEARS. Where: [address] [place] [phone] Business (1) Allergies codeine Medications Please ask your primary doctor or pharmacist before taking any other medication not listed, including over the counter drugs, herbal medications, vitamins and or supplements as they may interact withyour home medications. What How Much When Instructions Last Dose Unchanged acetaminophen- diphenhydramine (Tylenol PM ExtraStrength oral tablet) 1 tab(s) by mouth Daily at bedtime Unchanged biotin by mouth Once a day Unchanged ibuprofen (ibuprofen 200 mg oral tablet) 2 tab(s) by mouth Every 4 hours as needed for for pain Unchanged Misc Medication (Collagen Powder) Unchanged multivitamin (Multivitamin) 1 tab(s) by mouth Every day Please take this list to your next doctor s visit. Bring all medications you take, including over the counter medications, herbals and other supplements with you to your doctor s visit. Patients and families are reminded to discard old lists and to update any records with all medication providers or retail pharmacies. Education Materials Colonoscopy, Adult, Care After This sheet gives you information about how to care for yourself after your procedure. Your health care provider may also give you more specific instructions. If you have problems or questions, contact your health care provider. What can I expect after the procedure? After the procedure, it is common to have: A small amount of blood in your stool for 24 hours after the procedure. Some gas. Mild abdominal cramping or bloating. Follow these instructions at home: General instructions For the first 24 hours after the procedure: ? Do not drive or use machinery. ? Do not sign important documents. ? Do not drink alcohol. ? Do your regular daily activities at a slower pace than normal. ? Eat soft, ykca-vk-jjzdvf foods. Take puxh-ppl-bptwont or prescription medicines only as told by your health care provider. Relieving cramping and bloating Try walking around when you have cramps or feel bloated. Apply heat to your abdomen as told by your health care provider. Use a heat source that your healthcare provider recommends, such as a moist heat pack or a heating pad. ? Place a towel between your skin and the heat source. ? Leave the heat on for 20 30 minutes. ? Remove the heat if your skin turns bright red. This is especially important if you are unable to feel pain, heat, or cold. You may have a greater risk of getting burned. Eating and drinking Drink enough fluid to keep your urine pale yellow. Resume your normal diet as instructed by your health care provider. Avoid heavy or fried foods thatare hard to digest. Avoid drinking alcohol for as long as instructed by your health care provider. Contact a health care provider if: You have blood in your stool 2 3 days after the procedure. Get help right away if: You have more than a small spotting of blood in your stool. You pass large blood clots in your stool. Your abdomen is swollen. You have nausea or vomiting. You have a fever. You have increasing abdominal pain that is not relieved with medicine. Summary After the procedure, it is common to have a small amount of blood in your stool. You may also have mild abdominal cramping and bloating. For the first 24 hours after the procedure, do not drive or use machinery, sign important documents, or drink alcohol. Contact your health care provider if you have a lot of blood in your stool, nausea or vomiting, a fever, or increased abdominal pain. This information is not intended to replace advice given to you by your health care provider. Make sure you discuss any questions you have with your health care provider. Document Released: 02/23/2005 Document Revised: 05/04/2018 Document Reviewed: 09/22/2016 [employer] Patient Education 2020 [employer] Monitored Anesthesia Care, Care After These instructions provide you with information about caring for yourself after your procedure. Your health care provider may also give you more specific instructions. Your treatment has been plannedaccording to current medical practices, but problems sometimes occur. Call your health care provider if you have any problems or questions after your procedure. What can I expect after the procedure? After your procedure, you may: Feel sleepy for several hours. Feel clumsy and have poor balance for several hours. Feel forgetful about what happened after the procedure. Have poor judgment for several hours. Feel nauseous or vomit. Have a sore throat if you had a breathing tube during the procedure. Follow these instructions at home: For at least 24 hours after the procedure: Have a responsible adult stay with you. It is important to have someone help care for you until youare awake and alert. Rest as needed. Do not: ? Participate in activities in which you could fall or become injured. ? Drive. ? Use heavy machinery. ? Drink alcohol. ? Take sleeping pills or medicines that cause drowsiness. ? Make important decisions or sign legal documents. ? Take care of children on your own. Eating and drinking Follow the diet that is recommended by your health care provider. If you vomit, drink water, juice, or soup when you can drink without vomiting. Make sure you have little or no nausea before eating solid foods. General instructions Take aatg-ukr-bjwdxwd and prescription medicines only as told by your health care provider. If you have sleep apnea, surgery and certain medicines can increase your risk for breathing problems. Follow instructions from your health care provider about wearing your sleep device: ? Anytime you are sleeping, including during daytime naps. ? While taking prescription pain medicines, sleeping medicines, or medicines that make you drowsy. If you smoke, do not smoke without supervision. Keep all follow-up visits as told by your health care provider. This is important. Contact a health care provider if: You keep feeling nauseous or you keep vomiting. You feel light-headed. You develop a rash. You have a fever. Get help right away if: You have trouble breathing. Summary For several hours after your procedure, you may feel sleepy and have poor judgment. Have a responsible adult stay with you for at least 24 hours or until you are awake and alert. This information is not intended to replace advice given to you by your health care provider. Make sure you discuss any questions you have with your health care provider. Document Released: 11/01/2016 Document Revised: 10/10/2018 Document Reviewed: 11/01/2016 Elsevier Patient Education 2020 [employer] Additional Information VACCINATE! IT SAVES LIVES! Members of the community who have not yet received the COVID-19 vaccine and would like to receive it can visit one of [facility] vaccine clinics. There are many vaccine clinic locations within the [facility]. For locations and available times, please visit [email or web address].[place].gov/. It is important to note that some COVID mobile vaccine clinics are held outdoors and may be canceled in rainy or stormy conditions. To learn more about pediatric vaccinations (ages 5-11), we invite you to visit the [facility] webpage. [email or web address].[email or web address].org/pages/[email or web address]-Aambp-Babzvindqlm-Krqfukzmdw-Kemxk-Jkd stions.htmlTo learn more about the COVID-19 vaccine, we invite you to visit the CDC website for a list of frequently asked questions. https://www.cdc.gov/coronavirus/2019-ncov/vaccines/faq.html [facility] Patient Portal Access Instructions: Stay connected with your healthcare team and access your personal medical information anytime with the [facility] Patient Portal.If you would like a full copy of your medical records, please contact the [facility] Medical Records Department, Wednesday through Wednesday between 8a.m. and 4:30p.m. Please follow the directions below to access the portal: 1.Access the email account you provided upon registration to the [facility].2.Look for an invitation email from [facility].3.Open the email and access the invitation link: Accept Invitation to [facility].Fill in the required ovalle to create your account. Sign into www.[email or web address] with your username and password that you created in the above steps to stay up to date. You can then view a summary of results, a summary of your visits, and the ability to download your summaries to your computer or send the information securely to a physician. Remember that your healthcare information is confidential, so carefully consider who you will allow to register on the [facility] Patient Portal for access to your information. You can also access the [facility] Patient Portal on the [employer]. Simply click on "Health Records" under "HealthData" and then click on the [employer] logo. HOW TO SAFELY DISPOSE OF PRESCRIPTION MEDICATIONS Please use one of the following methods to safely dispose of your unused medications. 1.Use a drug disposal kit: the drug disposal pouch allows you to safely discard your old and unuseddrugs. Ask your nurse to give you one when you are discharged.2.Visit a local take-back location: Many local pharmacies and police departments have programs that collect old and unwanted prescriptiondrugs. Call your local pharmacy or go to http://bit.[employer]/0M1Nr7a to find one close to you.3.Make use of household items: Use cat litter or old coffee grounds to dispose medications if other options arenot available. Mix your drugs with these household products, seal them in an airtight container andthrow it into the garbage. Call [facility]: [phone] to be sure your drugs can be disposed of in this way. Some medicines may require a different approach.4.Never flush your medications down the toilet. IF YOU HAVE BEEN PRESCRIBED AN OPIOID FOR PAIN If you have been prescribed an opioid (such as hydrocodone, oxycodone or morphine), it is critical to understand the possible side effects and risks of opioid pain medications. Even when taken as directed, opioids can have several side effects including: Tolerance, meaning you might need to take more of a medication for the same pain relief. Nausea, vomiting and/or constipation. Sleepiness, dizziness, dry mouth, confusion, depression or itching. Physical dependence, meaning you have withdrawal symptoms when a medication is stopped, can develop within a few days. KNOW YOUR RESPONSIBILITIES It is important to know exactly how much and how often to take the opioid pain medications you are prescribed. Never take opioids in higher amounts or more often than prescribed. Do not combine opioids with alcohol or other drugs that cause drowsiness, such as benzodiazepines, also known as benzos, including diazepam and alprazolam, muscle relaxants or sleep aids. Never sell or share prescription opioids. This is illegal. Store opioids in a secure place and out of reach of others (including children, family, friends and visitors). The last page of this document has been signed and retained as a CHART COPY. Signatures Patient Education Materials Colonoscopy, Adult, Care After Monitored Anesthesia Care, Care After Medication Leaflets My discharge plan and instructions have been reviewed and explained to me and IERIN DIANE C understand my current condition and have read and understand these discharge instructions. I have received a written copy of the plan/instructions. If I have questions, I am aware that I should contact my doctor. Patient/Roentgenologist Signature: Date/Time: Relationship to Patient: Witness Name/Signature: Date/Time: [facility]02-27-2023 Anesthesiology Consult note Patient: OLGA LIDIA KHAN Age: 57 years Sex: Female : 1965 Associated Diagnoses: None Author: LAURA VENCES Assessment Postanesthesia assessment Mental status: alert & oriented x 4. Respiratory function: lungs are clear to auscultation. Respiratory support: none. CV function: Normal rate. Cardiovascular support: none. Pain. Nausea status: denies nausea. Postoperative hydration status: within normal limits. Digitally Signed by LAURA VENCES on 09/21/2022 09:48 AM [facility]02-27-2023 Note METALINE ADMISSION HISTORY AND PHYSICIAL CHIEF COMPLAINT: HISTORY OF PRESENT ILLNESS: REVIEW OF SYSTEMS: ACTIVE PROBLEMS: (1) Hypercholesterolemia ([id number]) MEDICATIONS: Active Inpt Meds: None Active PRN Meds: None One Time Meds: None Active IV Meds: Lactated Ringers Infusion 1,000 mL (LR 1,000 mL) Start: 09/21/22 7:39:00 EST, Rate: 50 mL/hr, 09/21/22 7:39:00 EST ALLERGIES: (1) codeine FAMILY HISTORY: SOCIAL HISTORY: PHYSICAL EXAM: VITALS: [id number](kg) 09/21 07:4136.1--[id number]/27 56.5 24 Hr Tmax: 36.1 at 09/21 07:41 36 Hr Tmax: 36.1 at 09/21 07:41 Vital Signs are the last 5 in the past 48 hours. Weights display the last 5 within 7 days. Initial Wt: 09/21 56.5 kg 124 lb Current Wt: 09/21 56.5 kg 124 lb GENERAL: HEENT: CARDIOVASCULAR: RESPIRATORY: ABDOMEN: EXREMETIES: NEUROLOGICAL: PSYCHIATRIC: LABS: No 36hr Lab Data DIAGNOSTICS: IMPRESSION: PLAN: History and Physical Update I have examined the patient; reviewed the H&P and there are no changes to the H&P unless noted below. Digitally Signed by MALINI THOMAS MD on 09/21/2022 09:30 AM [facility]02-27-2023 Anesthesiology Consult note Patient: OLGA LIDIA KHAN Age: 57 years Sex: Female : 1965 Associated Diagnoses: None Author: LAURA VENCES APRN-DISTRIBUTION MANAGER Preoperative Information Time of last food or liquid consumption: 09/21/2022 05:00:00 Anesthesia history Patient's history: negative. Family's history: negative. Review of Systems Ear/Nose/Mouth/Throat: Negative. Respiratory: Negative. Cardiovascular: Negative. Gastrointestinal: Negative. Genitourinary: Negative. Endocrine: Negative. Musculoskeletal: Negative. Integumentary: Negative. Neurologic: Negative. Health Status Allergies: Allergic Reactions (Selected) Severity Not Documented Codeine- No reactions were documented., Allergies (1) ActiveReaction codeineNone Documented Current medications: (Selected) Inpatient Medications Ordered LR 1,000 mL: 50 mL/hr, Intravenous Documented Medications Documented Collagen Powder: 0 Refill(s) Multivitamin: 1 tab(s), Oral, Daily, 0 Refill(s) Tylenol PM Extra Strength oral tablet: 1 tab(s), Oral, qHS, 0 Refill(s) biotin: Oral, qDay, 0 Refill(s) ibuprofen 200 mg oral tablet: 400 mg, 2 tab(s), Oral, q4h, PRN: for pain, Medications (1) Active Scheduled: (0) Continuous: (1) Lactated Ringers 1,000 mL 1,000 mL, Intravenous, 50 mL/hr PRN: (0) Problem list: Active Problems (1) Hypercholesterolemia Histories Past Medical History: Resolved Lesion of cervix ([id number]): Onset on 03/25/2015 at 49 years. Resolved. Comments: 03/25/2015 EDT 10:31 EDT - Marina Levi RN with menorrhagia Family History: Pulmonary fibrosis Mother Diabetes mellitus Father Heart disease Father Brother Parkinson's disease Mother Cancer of colon Mother Comments: 06/12/2022 9:06 EST - Anjali Orr WILBERT cancer of cecum, ruptured Stroke Father HTN - Hypertension Mother Father Sister Brother Procedure history: Dilation and curettage ([id number]) on 03/25/2015 at 49 Years. Tooth 1 ([id number]). Comments: 03/25/2015 10:33 CONOR SANDHU x 3-4 Social History Social & Psychosocial Habits Alcohol 05/26/2019 Use: Current Type: Wine Frequency: 1-2 times per week Substance Abuse 03/11/2021 Use: Never Tobacco 05/26/2019 Tobacco Use: Never (less than 100 in l Nutrition/Health 05/26/2019 Caffeine intake amount: coffee . Physical Examination Vital Signs 09/21/2022 7:41 EST Temperature Temporal Artery 36.1 DegC Peripheral Pulse Rate 76 bpm Respiratory Rate 18 br/min Systolic Blood Pressure Non-Invasive 143 mmHg HI Diastolic Blood Pressure Non-Invasive 72 mmHg Vital Signs(last 24 hrs) Last Charted Resp Rate 18 br/min (SEP 21 07:41) SBPH 143mmHg (SEP 21 07:41) DBP72 mmHg (SEP 21 07:41) BMI21.53 (SEP 21 07:45) Measurements from flowsheet : Measurements 09/21/2022 7:45 EST Height 162 cm Admission Weight 56.5 kg Weight Method Stated [place] Body Weight 54.19 kg BSA Admission 1.6 Body Mass Index 21.53 kg/m2 Pain assessment: Pain Assessment 09/21/2022 7:41 EST Primary Pain Intensity 0 Pain Scale Type 0-10 Pain scale . General: Alert and oriented. Airway: Normal temporomandibular joint mobility. Mallampati classification: I (soft palate, fauces, uvula, pillars visible). Head: Normocephalic. Dentition Evaluation: Own teeth, partial upper. Neck: Supple. Respiratory: Lungs are clear to auscultation. Cardiovascular: Normal rate. Heart Sounds: Normal. Gastrointestinal: Soft. Musculoskeletal Normal range of motion. Integumentary: Intact. Neurologic: Alert, Oriented. Review / Management Results review: No qualifying data available , Lab results 09/21/2022 7:58 EST Antecubital Right 09/21/2022 22 gauge Peripheral IV Activity: Insert new site Peripheral IV Dressing Condition: Clean, Dry, Intact Peripheral IV Dressing Activity: Applied, Transparent dressing Peripheral IV Line Status/Patency: Continuous infusion Peripheral IV Line Care: Secured with tape Peripheral IV Site Condition: No complications Peripheral IV Equipment: Extension set Peripheral IV Number of Attempts: 1 09/21/2022 7:57 EST Lactated Ringers Injection Begin Bag 1,000 mL mL 09/21/2022 7:45 EST Designated Person #1 We May Share PHI Designated Person #1 We May Share PHI Designated Person #1 Relationship Spouse Height 162 cm Admission Weight 56.5 kg Weight Method Stated [place] Body Weight 54.19 kg BSA Admission 1.6 Body Mass Index 21.53 kg/m2 Status No, per patient Sensory Deficits None Advanced Directives Unable to obtain Infectious Disease Symptoms Patient states no symptoms Infectious Disease Recent Exposure No Alcohol and Drug Use No Employee of Institutional Living No Health Care Employee No History of Exposure to TB No History of Positive Chest X-Ray for TB No History of Positive TB Skin Test No Homeless No Known Immunosuppression No Recent Immigrant No Resident of Institutional Living No Bloody Sputum No Fatigue No Fever No Loss of Appetite No Night Sweats No Persistent Cough > 3 Weeks No Weight Loss No Individuals Taught Patient, Spouse Learning Readiness Willing to learn Barriers to Learning None evident Teaching Method Explanation, Printed materials Preferred Written Language Honduran Preferred Spoken Language Honduran Pre Procedure/Surgery Education Appropriate expectations Procedure/Surgical Teaching Evaluation Verbalizes/Nonverbally indicates understanding Information Given by Patient Patient's Current Physicians DR. INGRAM Discharge To, Anticipated Home independently Prev Test Positive/Diagnosis w/COVID-19 No Current Quarantine/Isolated any Illness No Any Contact with Sick Animals/Birds No Traveled Anywhere in Last 30 Days No No Personal Devices, Patient Valuables Dentures, partial plate, Glasses Admission Note-Nursing Procedure/Therapy Intake 09/21/2022 7:41 EST Temperature Temporal Artery 36.1 DegC Peripheral Pulse Rate 76 bpm Respiratory Rate 18 br/min Systolic Blood Pressure Non-Invasive 143 mmHg HI Diastolic Blood Pressure Non-Invasive 72 mmHg Primary Pain Intensity 0 Pain Scale Type 0-10 Pain scale Heart Rhythm Regular Oxygen Therapy Room air Oxygen Saturation 100 % Abdomen Description Non-distended, Soft Abdomen Palpation Non-Tender Urinary Elimination Voiding, no difficulties Skin Temperature Warm Skin Description [place], Dry Skin Integrity Intact Neurological Symptoms Patient denies Extremity Movement Equal Characteristics of Speech Clear Level of Consciousness Alert Strength All Extremities Strong Tone All Extremities Normal Sensation All Extremities Intact Affect/Behavior Appropriate, Calm, Cooperative Orientation Oriented x 4 Allergies Yes Consent Form Signed Yes Patient Dressed In Hospital gown Pre-op Preparation Glasses removed History & Physical On Chart Yes Activity Status ADL Awake, Resting NPO Status Maintained, More than 8 hours Standard Safety ID band on, Allergy Band on, Call device within reach, Bed in low position, Wheels locked, Upper/Half-Length side-rails up Allergy Band on and Verified Yes Patient ID Band on and Verified Yes Implants Verified Yes Pacemaker/AICD Verified Yes Last Fluid Intake 09/20/2022 18:30 Last Food Intake 09/20/2022 7:44 Last Void 09/21/2022 7:00 . Assessment and Plan [place] [employer] Anesthesiologists (ASA) physical status classification: Class I. Anesthetic Preoperative Plan Anesthetic technique: MAC. Postoperative pain management: Per surgeon. Informed consent: signed by patient. Digitally Signed by LAURA VENCES on 09/21/2022 09:12 AM [facility] Diagnosis Onset Date Resolution Status Mixed hyperlipidemia acute Right hip pain acute Screening for colon cancer n oneactive Family history of colon cancer noneactive Establishing care with new doctor, encounter for noneactive Screening for breast cancer noneactive [facility] Work Phone: Evaluation note* Diagnosis Onset Date Resolution Status Mixed hyperlipidemia acute Right hip pain acute Annual physical exam noneact evangelist [facility] Work Phone: Evaluation note* Diagnosis Onset Date Resolution Status Admit Date Mixed hyperlipidemia acute February 08, 2025 7:58am Right hip pain acute February 08, 2025 7:58am Annual physical exam noneactive February 08, 2025 7:58am [facility] Work Phone: Hospital course Narrative No data available for this section [facility]: Reason for referral (narrative)No reason for referral information availableSanta Barbara Cottage [facility] Work Phone: Chief Complaint and Reason for Visit Chief Complaint OTHER SPORTS OFFICIAL. EST CARE - NEEDS NPP Reason for Visit Mixed hyperlipidemia Right hip pain Screening for colon cancer Family history of colon cancer Establishing care with new doctor, encounter for Screening for breast cancer Chief Complaint OTHER SPORTS OFFICIAL. EST CARE - NEEDS NPP SCREENING Reason for Visit Mixed hyperlipidemia Right hip pain Screening for colon cancer Family history of colon cancer Establishing care with new doctor, encounter for Screening for breast cancer Chief Complaint 1 Y FU Reason for Visit Mixed hyperlipidemia Right hip pain Annual physical exam Chief Complaint 1 Y FU SCREENING Reason for Visit Mixed hyperlipidemia Right hip pain Annual physical exam Chief Complaint Admit Date YEARLY February 08, 2025 7:58 am Reason for Visit Admit Date Mixed hyperlipidemia February 08, 2025 7:5 8am Right hip pain February 08, 2025 7:58 am Annual physical exam February 08, 2025 7:5 8am Family History No Family History Records Found Relationship Condition Age at Onset Recorded Date/T yohana mother Chronic obstructive pulmonary disease Unk nown Disorder of thyroid Unknown Anxiety Unknown Arthritis Unknown Depression Unknown Malignant neoplasm of colon Unknown Rheumatoid arthritis Unknown father Venous thrombosis Unknown Myocardial infarction Unknown Diabetes mellitus Unknown Cardiac disease Unknown Hypertension Unknown Cerebrovascular accident (CVA) Unknown Summary Purpose Advance Directives No Advanced Directives Records FoundNo Advanced Directives Records Found Additional Source Comments Goals (unrecognized section and content) Goals may be documented in a n alternate sectionGoals may be documented in an alternate section No data available for this sectionGoals may be documented in an alternate sectionGoals may be documented in an alternate sectionGoals may be documented in an alternate section Care Team (unrecognized sect ion and content) Care Team Personnel Name: NANO GIBBS MD Member Role: Primary Care Physician Address: Address: [place] [address] [id number] Care Team Related Persons Name: KHANH KHAN Address: Home [address], [place] [id number] [place] INFORMATION SOURCE (unrecogn ized section and content) DATE CREATED AUTHOR 10/03/2022 [facility] [employer] ([place]) DATE CREATED AUTHOR AUTHOR'S ORGANIZ ATION 02/11/2025 [facility] Care Teams (unrecognized sec tion and content) Team Status: Active Member Role Status Dates Dr. Nano Gibbs MD Primary Care Provider Active Team Status: Inactive Member Role Status Dates Dr. Nano Gibbs MD Primary Care Pro vider, Attending Provider, Referring Provider Active Team Status: Inactive Member Role Status Dates Dr. Nano Gibbs MD Primary Care Provider, Attendi ng Provider Active Team Status: Active Member Role/Relationship Status Dates Dr. Nano Gibbs MD Primary Care Provider Active Team Status: Inactive Member Role/Relationship Status Dates Dr. Nano Gibbs MD Primary Care Provider Active Start: February 08, 2025 End: February 08, 2025 Dr. Nano Gibbs MD Attending Provider Active Start: February 08, 2025 End: February 08, 2025 Dr. Nano Gibbs MD Referring Provider Active Start: February 08, 2025 End: February 08, 2025 FOR RECORDS PERTAINING TO PATIENTS WHO ARE OR HAVE BEEN ENROLLED IN A CHEMICAL DEPENDENCY/SUBSTANCEABUSE PROGRAM, SOME INFORMATION MAY BE OMITTED. This clinical summary was aggregated from multiple sources. Caution should be exercised in using it in the provision of clinical care. This summary normalizes information from multiple sources, and as a consequence, information in this document may materially change the coding, format and clinical context of patient data. In addition, data may be omitted in some cases. CLINICAL DECISIONS SHOULD BE BASED ON THE PRIMARY CLINICAL RECORDS. [employer] provides no warranty or guarantee of the accuracy or completeness of information in this document.
[2025-02-15 12:57] LABS: Hematocrit 38.7 % (37-47); Hemoglobin 13.1 g/dL (12.0-15.0); Immature Granulocytes Count 0.010 X10^3/uL (0.0-0.0); Mean Corp Hgb Conc 33.9 g/dL (32-36); Mean Corpuscular Volume 94.4 fL (81-99); Mean Platelet Vol. 10.9 fl (6.2-12.0); NRBC Flagged by Analyzer 0 % (0-5); Platelet Count 235 K/mm3 (150-450); RBC Distribution Width CV 13.0 % (11.6-14.6); RBC Distribution Width SD 45.0 fl (35.1-43.9); Red Blood Count 4.10 M/mm3 (4.2-5.4); White Blood Count 4.4 K/mm3 (4.4-11.0)
[2025-02-15 13:09] LABS: AST(SGOT) 21 U/L (<=31); Alanine Aminotransfer ALT/SGPT 16 U/L (<=34); Albumin, Serum 4.5 g/dL (3.4-4.8); Alkaline Phosphatase 52 U/L (35-104); Anion Gap 12 (5-15); BUN 13 mg/dL (4-19); BUN/Creat Ratio 17.9 RATIO (10-20); Calcium,Total 9.4 mg/dL (7.6-11.0); Carbon Dioxide 24.4 mmol/L (21.0-32.0); Chloride 104 mmol/L (98-108); Cholesterol 227 mg/dL (<=200); Globulin 2.9 g/dL (2.2-4.2); Glucose 90 mg/dL (70-99); Low Density Lipoprotein Calc. 137 mg/dL; Potassium 4.6 mmol/L (3.3-5.1); Triglycerides 85 mg/dL; Very Low Density Lipoprotein 17 mg/dL (5-40); Vitamin D,25 Hydroxy 49.2 ng/mL (30-100); cholesterol:hdl ratio screen 3.10
== END | disposition home or self-care (01) ==
LOC: BIMLAB 08:14
PROVIDERS: PCP Internal Medicine; Referring Provider Internal Medicine; Visit Provider Internal Medicine
DX: Z00.00 Encounter for general adult medical examination without abnormal findings (principal); E78.2 Mixed hyperlipidemia
CPT/HCPCS: 36415; 80053; 80061; 82306; 85025